=== PATIENT | female | born 1960 | race Two or more races ===

== ENCOUNTER 2023-06-16 06:22 | Day surgery (SDC) | payer OTHER | END 2023-06-16 10:35 | disposition home or self-care (01) | LOC: AMB-ENDOS 06:22 | PROVIDERS: ATTEND Colon & Rectal Surgery | DX: K57.30 Diverticulosis of large intestine without perforation or abscess without bleeding (principal); K64.1 Second degree hemorrhoids; Z86.010 Personal history of colon polyps; K56.50 Intestinal adhesions [bands], unspecified as to partial versus complete obstruction; Z20.822 Contact with and (suspected) exposure to COVID-19 ==